=== PATIENT | female | born 1985 | race Caucasian/White ===

== ENCOUNTER 2017-01-02 23:43 | Emergency (ER) | payer OTHER ==
--- NOTE | 2017-01-03 01:51 | ED CLINICAL REPORT ---
Clinical Report - Physicians/Mid Levels [facility] [address] [place] [address] 01/02/2017 23:44 Patient: JIM SPENCER Time Seen: 00:10. Arrived- By private vehicle. Historian- patient. HISTORY OF PRESENT ILLNESS Chief Complaint: CHEST PAIN. It is described as sharp and it is described as located in the central chest area. No radiation. This started last night and is now gone. It was abrupt in onset and has been intermittent. No nausea, vomiting, difficulty breathing or diaphoresis. REVIEW OF SYSTEMS No chills, fever, sweats, calf pain or cough. No difficulty breathing, pedal edema, palpitations, abdominal pain or constipation. No diarrhea, nausea, vomiting or urinary problems. All systems otherwise negative, except as recorded above. SOCIAL HISTORY Never smoker. Occasional alcohol use. No drug use. FAMILY HISTORY Heart disease in first-degree relative (sibling). ADDITIONAL NOTES The nursing notes have been reviewed. PHYSICAL EXAM Vital Signs: 01/02/2017 23:58 BP: 114/44. HR: 73. RR: 14. O2 saturation: 99%. Temp: 98.8 F. Pain level now: 0/10. Have been reviewed. Appearance: Alert. Eyes: Pupils equal, round and reactive to light. ENT: Pharynx normal. Neck: Normal inspection. Neck supple. CVS: Normal heart rate and rhythm. Heart sounds normal. Respiratory: No respiratory distress. Chest pain reproducible with palpation of the costochondral junction and sternum, with movement of the right arm and left arm and with deep breathing. Breath sounds normal. Abdomen: Soft and nontender. Bowel sounds normal. No organomegaly. No mass. Back: Normal external inspection. Skin: Skin warm. Normal skin turgor. Extremities: Extremities exhibit normal ROM. No calf tenderness. No lower extremity edema. LABS, X-RAYS, AND EKG EKG: No acute process. Rate: 71. sinus arrhythmia. Prior EKG unavailable. The study has been independently viewed by me. Chest X-ray: No acute disease. The X-rays were independently viewed by me. Laboratory Tests: UA-Culture if indicated: (GEMMA: 01/03/2017 00:35) ( [facility] 01/03/2017 00:49) Final results Test Result Flag Units (Reference) URINE COLOR YELLOW URINE APPEARANCE CLEAR URINE GLUCOSE NEGATIVE (NEGATIVE) URINE BILIRUBIN NEGATIVE (NEGATIVE) URINE KETONE NEGATIVE (NEGATIVE) URINE SPECIFIC GRAVITY 1.020 (1.010-1.030) URINE PH 6.0 (5.0-8.0) URINE PROTEIN NEGATIVE (NEGATIVE) URINE UROBILINOGEN 0.2 EU/dL (0.2-1.0) URINE NITRITE NEGATIVE (NEGATIVE) URINE BLOOD NEGATIVE (NEGATIVE) URINE LEUK ESTERASE NEGATIVE (NEGATIVE) URINE RBC 0-1 rbc/hpf (0-1) URINE WBC RARE wbc/hpf (0-1) URINE EPITHELIAL CELLS 0-1 EPI/hpf (0-5) URINE BACTERIA NONE SEEN (NONE SEEN) URINE COMMENT CULT NOT INDICATED URINE CULTURES ARE SET-UP BASED ON THE FOLLOWING CRITERIA:POSITIVE NITRITEPOSITIVE LEUKOCYTE ESTERASEGREATER THAN 10 WHITE BLOOD CELLSMODERATE (2+) OR GREATER BACTERIA Urine: (GEMMA: 01/03/2017 00:35) ( [facility] 01/03/2017 00:43) Final results Test Result Flag Units (Reference) URINE NEGATIVE CBC w Diff: (GEMMA: 01/03/2017 00:07) ( [facility] 01/03/2017 00:23) Final results Test Result Flag Units (Reference) WHITE BLOOD COUNT 8.7 K/uL (4.5-11.5) RED BLOOD COUNT 4.29 M/uL (4.00-5.20) HEMOGLOBIN 12.4 gm/dL (12.0-16.0) HEMATOCRIT 36.6 % (36.0-46.0) MEAN CELL VOLUME 85 fL (80-100) MEAN CORPUSCULAR HGB 29 pg (26-34) MEAN CORPUSCULAR HGB CONC 34 g/dL (31-37) RED CELL DISTRIBUTION WIDTH 13.1 % (11.6-14.8) PLATELET COUNT 262 K/uL (150-400) NEUTROPHIL % 55.7 % (50-75) LYMPH % 32.9 % (25-40) MONO % 6.9 % (3-14) EOSINOPHIL % 4.1 H % (0-4) BASOPHIL % 0.4 % (0-2) CHEM 13 PANEL: (GEMMA: 01/03/2017 00:07) ( MsgRcvd 01/03/2017 00:34) Final results Test Result Flag Units (Reference) GLUCOSE 98 mg/dL (70-110) BUN 17 mg/dL (7-18) CREATININE 0.8 mg/dL (0.6-1.3) Estimated GFR >60 mL/min Estimated GFR- >60 mL/min Note: Persistent reduction over 3 months in eGFR<60 mL/min/1.73 m2 defines CKD. Patients with eGFR values>=60 mL/min/1.73 m2 may also have CKD if evidence ofpersistent proteinuria. Additional information may be foundat www.kidney.org. SODIUM 140 mmol/L (136-145) POTASSIUM 3.9 mmol/L (3.5-5.1) CHLORIDE 103 mmol/L (98-107) CARBON DIOXIDE 30 mmol/L (21-32) CALCIUM 9.5 mg/dL (8.5-10.1) TOTAL PROTEIN 7.4 g/dL (6.4-8.2) ALBUMIN 3.9 g/dL (3.3-5.0) BILIRUBIN, TOTAL 0.3 mg/dL (0.0-1.0) ALKALINE PHOSPHATASE 79 U/L (46-116) AST (SGOT) 14 L U/L (15-37) ALT (SGPT) 23 U/L (12-78) CPK 73 U/L (24-260) MAGNESIUM 1.8 mg/dL (1.8-2.4) TROPONIN I <0.05 L ng/mL (0.00-1.5) TROPONIN REFERENCE RANGE:<0.1 NEGATIVE0.1-1.5 INDETERMINANT>1.5 POSITIVE . PROGRESS AND PROCEDURES Course of Care: Patient is stable. Patient/family counseled. Old medical records reviewed. Disposition: Discharged. Condition: stable. CLINICAL IMPRESSION Costochondritis INSTRUCTIONS No strenuous activity. Warnings: GENERAL WARNINGS: Return or contact your physician immediately if your condition worsens or changes unexpectedly, if not improving as expected, or if other problems arise. OTC Medications: Motrin (available over the counter): take according to label instructions. Follow-up: Follow up with your doctor as needed. Understanding of the discharge instructions verbalized by patient. (Electronically signed by Pernell Roach MD 01/03/2017 2:55)
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
--- NOTE | 2017-01-03 01:52 | ED ORDER SUMMARY ---
..... Patient: JIM SPENCER OrderSheet [facility] VisitID: [id number] [address] [place] [address] 31y, F Registration Date/Time: 01/02/2017 ORDER SHEET Weight: 113.3 kg (stated) Allergies: Penicillins, Sulfa Antibiotics, Vicodin GENERAL ORDERS: Training And Development Head (Continuous) (CP) (00:10 01/03/2017 JSanders R.N. per protocol) (0:11 JSanders R.N.) Cardiac Panel Stat (00:01/03/2017 JSanders R.N. per protocol) (0:11 JSanders R.N.) UA-Culture if indicated Urgent (00:01/03/2017 JSanders R.N. per protocol) (Ack 0:27 RKaruga) (0:37 JSanders R.N.) Urine Urgent (00:01/03/2017 JSanders R.N. per protocol) (Ack 0:27 RKaruga) (0:37 JSanders R.N.) Pulse oximeter (00:10 01/03/2017 JSanders R.N. per protocol) (0:11 JSanders R.N.) EKG - ER Stat (00:13 01/03/2017 JSanders R.N. per protocol) (0:21 JSanders R.N.) Chest 1V Urgent (01:00 01/03/2017 JSanders R.N. per protocol) (Ack 1:05 RKaruga) (1:14 JSanders R.N.) MEDICATION ORDERS: IV FLUIDS: IV Saline Lock (00:10 01/03/2017 JSanders R.N. per protocol) (0:11 JSanders R.N.) ORDER SHEET NOTES: [Electronically signed by Jahaira Rossi R.N. (02:17 01/03/2017)] [Electronically signed by Pernell Roach MD (02:55 01/03/2017)] [Electronically locked/signed by Jahaira Rossi R.N. (02:17 01/03/2017)]
--- NOTE | 2017-01-03 01:52 | ED ORDER SUMMARY ---
..... Patient: JIM SPENCER OrderSheet [facility] VisitID: [id number] [address] [place] [address] 31y, F Registration Date/Time: 01/02/2017 ORDER SHEET Weight: 113.3 kg (stated) Allergies: Penicillins, Sulfa Antibiotics, Vicodin GENERAL ORDERS: Textiles And Clothing Teacher (Continuous) (CP) (00:10 01/03/2017 JSanders R.N. per protocol) (0:11 JSanders R.N.) Cardiac Panel Stat (00:01/03/2017 JSanders R.N. per protocol) (0:11 JSanders R.N.) UA-Culture if indicated Urgent (00:01/03/2017 JSanders R.N. per protocol) (Ack 0:27 RKaruga) (0:37 JSanders R.N.) Urine Urgent (00:01/03/2017 JSanders R.N. per protocol) (Ack 0:27 RKaruga) (0:37 JSanders R.N.) Pulse oximeter (00:10 01/03/2017 JSanders R.N. per protocol) (0:11 JSanders R.N.) EKG - ER Stat (00:13 01/03/2017 JSanders R.N. per protocol) (0:21 JSanders R.N.) Chest 1V Urgent (01:00 01/03/2017 JSanders R.N. per protocol) (Ack 1:05 RKaruga) (1:14 JSanders R.N.) MEDICATION ORDERS: IV FLUIDS: IV Saline Lock (00:10 01/03/2017 JSanders R.N. per protocol) (0:11 JSanders R.N.) ORDER SHEET NOTES: [Electronically signed by Jahaira Rossi R.N. (02:17 01/03/2017)] [Electronically signed by Pernell Roach MD (02:55 01/03/2017)] [Electronically locked/signed by Jahaira Rossi R.N. (02:17 01/03/2017)]
--- NOTE | 2017-01-03 02:55 | ED DISCHARGE INSTRUCTIONS ---
Patient: JIM SPENCER General Instructions [facility] VisitID: [id number] [place] [address] 31y, F Registration Date/Time: 01/02/2017 Costochondritis INSTRUCTIONS No strenuous activity. Warnings: GENERAL WARNINGS: Return or contact your physician immediately if your condition worsens or changes unexpectedly, if not improving as expected, or if other problems arise. OTC Medications: Motrin (available over the counter): take according to label instructions. Follow-up: Follow up with your doctor as needed. Understanding of the discharge instructions verbalized by patient. ADDITIONAL INFORMATION Chest Wall Pain: Costochondritis The chest pain that you have had today is caused by Costochondritis. This condition is due to an inflammation of the cartilage joining the ribs to the breastbone. It is not caused by heart or lung problems. Although the exact cause for costochondritis is not known, it often occurs during times of emotional stress. It can be painful, but it is not dangerous. It usually disappears within one to two weeks, but may recur. Rarely, a more serious condition may cause symptoms similar to costochondritis; therefore, watch for the warning signs listed below. Home Care: If you feel that emotional stress is a cause of your condition, try to identify sources of that stress. It may not be obvious! Learn ways to deal with the stress in your life such as regular exercise, muscle relaxation, meditation, or simply taking time out for yourself. For more information about this, consult your doctor or go to a local bookstore and review books and tapes available on the subject of stress reduction. You may use acetaminophen (Tylenol) or ibuprofen (Motrin, Advil) to control pain, unless another pain medicine was prescribed. [ NOTE: If you have liver disease or ever had a stomach ulcer, talk with your doctor before using these medicines.] The use of heat (hot wet compress or heating pad) with or without local analgesic creams (Deep Heat Rub, Rufus Mulligan) will be helpful to reduce pain. Follow Up with your doctor as directed or sooner if you do not start to improve within the next two days. Get Prompt Medical Attention if any of the following occur: A change in the type of pain: if it feels different, becomes more severe, lasts longer, or spreads into your shoulder, arm, neck, jaw or back Shortness of breath or increased pain with breathing Weakness, dizziness, or fainting Cough with dark colored sputum (phlegm) or blood Abdominal pain Dark red or black stools Fever of 100.4F (38C) or higher, or as directed by your healthcare provider Ibuprofen Oral tablet What is this medicine? IBUPROFEN (eye BYOO proe fen) is a non-steroidal anti-inflammatory drug (NSAID). It is used for dental pain, fever, headaches or migraines, osteoarthritis, rheumatoid arthritis, or painful monthly periods. It can also relieve minor aches and pains caused by a cold, flu, or sore throat. How should I use this medicine? Take this medicine by mouth with a glass of water. Follow the directions on the prescription label. Take this medicine with food if your stomach gets upset. Try to not lie down for at least 10 minutes after you take the medicine. Take your medicine at regular intervals. Do not take your medicine more often than directed. A special MedGuide will be given to you by the pharmacist with each prescription and refill. Be sure to read this information carefully each time. Talk to your cleaning associate regarding the use of this medicine in children. Special care may be needed. What side effects may I notice from receiving this medicine? Side effects that you should report to your doctor or health long term care social worker as soon as possible: allergic reactions like skin rash, itching or hives, swelling of the face, lips, or tongue black or bloody stools, blood in the urine or in vomit breathing problems changes in vision chest pain general ill feeling or flu-like symptoms nausea or vomiting redness, blistering, peeling or loosening of the skin, including inside the mouth slurred speech or weakness on one side of the body stomach pain unexplained weight gain or swelling unusually weak or tired yellowing of eyes or skin Side effects that usually do not require medical attention (report to your doctor or health long term care social worker if they continue or are bothersome): constipation or diarrhea dizziness gas or heartburn stomach upset What may interact with this medicine? Do not take this medicine with any of the following medications: cidofovir ketorolac methotrexate pemetrexed This medicine may also interact with the following medications: alcohol aspirin diuretics lithium other drugs for inflammation like prednisone warfarin What if I miss a dose? If you miss a dose, take it as soon as you can. If it is almost time for your next dose, take only that dose. Do not take double or extra doses. Where should I keep my medicine? Keep out of the reach of children. Store at room temperature between 15 and 30 degrees C (59 and 86 degrees F). Keep container tightly closed. Throw away any unused medicine after the expiration date. What should I tell my health care provider before I take this medicine? They need to know if you have any of these conditions: asthma cigarette smoker drink more than 3 alcohol containing drinks a day heart disease or circulation problems such as heart failure or leg edema (fluid retention) high blood pressure kidney disease liver disease stomach bleeding or ulcers an unusual or allergic reaction to ibuprofen, aspirin, other NSAIDS, other medicines, foods, dyes, or preservatives or trying to get breast-feeding What should I watch for while using this medicine? Tell your doctor or healthcare professional if your symptoms do not start to get better or if they get worse. This medicine does not prevent heart attack or stroke. In fact, this medicine may increase the chance of a heart attack or stroke. The chance may increase with longer use of this medicine and in people who have heart disease. If you take aspirin to prevent heart attack or stroke, talk with your doctor or health long term care social worker. Do not take other medicines that contain aspirin, ibuprofen, or naproxen with this medicine. Side effects such as stomach upset, nausea, or ulcers may be more likely to occur. Many medicines available without a prescription should not be taken with this medicine. This medicine can cause ulcers and bleeding in the stomach and intestines at any time during treatment. Ulcers and bleeding can happen without warning symptoms and can cause . To reduce your risk, do not smoke cigarettes or drink alcohol while you are taking this medicine. You may get drowsy or dizzy. Do not drive, use machinery, or do anything that needs mental alertness until you know how this medicine affects you. Do not stand or sit up quickly, especially if you are an older patient. This reduces the risk of dizzy or fainting spells. This medicine can cause you to bleed more easily. Try to avoid damage to your teeth and gums when you brush or floss your teeth. You have been given the following additional information: Chest Wall Pain, Costochondritis Ibuprofen Oral tablet No strenuous activity. (Electronically signed by Pernell Roach MD 01/03/2017 2:55)
--- NOTE | 2017-01-03 02:55 | ED MAR SUMMARY ---
..... Medication Administration Record [facility] [address] [place], [place] [id number] Patient: JIM SPENCER Visit ID: [id number] 31y, F Weight: 113.3 kg Height/Length: 66 in BMI: 40.3 ALLERGIES: Penicillins, Sulfa Antibiotics, Vicodin
--- NOTE | 2017-01-03 02:55 | ED MED RECONCILIATION SUMMARY ---
Patient: JIM SPENCER Medication Reconciliation Report [facility] VisitID: [id number] [address] [place] [address] 31y, F Registration Date/Time: 01/02/2017 Weight: 113.3 kg Height/Length: 66 in. BMI: 40.3 ALLERGIES: Penicillins, Sulfa Antibiotics, Vicodin The patient's Home Medications are listed below: NONE. The source(s) of the original Home Medication information: Not obtained. The following Medications were given to the patient in the Emergency Department: None. The following Medications were prescribed to the patient: Motrin (available over the counter): take according to label instructions. -- Pernell Roach MD
--- NOTE | 2017-01-03 02:55 | ED MAR SUMMARY ---
..... Medication Administration Record [facility] [address] [place], [place] [id number] Patient: JIM SPENCER Visit ID: [id number] 31y, F Weight: 113.3 kg Height/Length: 66 in BMI: 40.3 ALLERGIES: Penicillins, Sulfa Antibiotics, Vicodin
--- NOTE | 2017-01-03 02:55 | ED MED RECONCILIATION SUMMARY ---
Patient: JIM SPENCER Medication Reconciliation Report [facility] VisitID: [id number] [address] [place] [address] 31y, F Registration Date/Time: 01/02/2017 Weight: 113.3 kg Height/Length: 66 in. BMI: 40.3 ALLERGIES: Penicillins, Sulfa Antibiotics, Vicodin The patient's Home Medications are listed below: NONE. The source(s) of the original Home Medication information: Not obtained. The following Medications were given to the patient in the Emergency Department: None. The following Medications were prescribed to the patient: Motrin (available over the counter): take according to label instructions. -- Pernell Roach MD
--- NOTE | 2017-01-03 06:04 | DIAGNOSTIC IMAGING REPORT ---
PROCEDURE: XR CHEST 1 VIEW INDICATION: CHEST PAIN TECHNIQUE: Portable AP view (0110 hours). COMPARISON: None. FINDINGS: Allowing for overlying wires and electrodes, lungs are clear. Heart and mediastinum are normal. Thorax is normal. IMPRESSION: 1. Negative chest.
== END 2017-01-03 02:00 | disposition home or self-care (01) ==
LOC: ED SRH 23:43
DX: M94.0 Chondrocostal junction syndrome [Tietze] (principal); Z88.0 Allergy status to penicillin; Z88.2 Allergy status to sulfonamides; Z88.5 Allergy status to narcotic agent
CPT/HCPCS: 90004; 90100; 90616; 92610; 92720; 93070; 95059